=== PATIENT | female | born 1975 | race American Indian/Alaskan Native ===

== ENCOUNTER 2016-09-09 08:08 | Inpatient (IN) | payer OTHER, SELFPAY ==
[2016-09-09] MEDS ORDERED: Sodium Chloride 0.9% 1,000 ML IV STA (09:07)
[2016-09-09 09:37] LABS: BASO # 0.1 K/uL (0.0-0.2); BASO % 0.5 % (0.0-2.0); EOS % 0.1 % (0.0-4.0); HEMATOCRIT 39.1 % (34.0-47.0); LYMPH # 1.4 K/uL (1.0-4.3); LYMPH % 12.6 % (20.0-40.0); MEAN CELL VOLUME 88.9 fl (81.0-99.0); MEAN CORPUSCULAR HEMOGLOBIN 31.6 pg (27.0-31.0); MEAN CORPUSCULAR HGB CONC 35.6 g/dL (33.0-37.0); MEAN PLATELET VOLUME 10.9 fl (7.2-11.7); MONO # 0.6 K/uL (0.0-0.8); MONO % 5.2 % (0.0-10.0); NEUT # 8.9 K/uL (1.8-7.0); NEUT % 81.6 % (50.0-75.0); NRBC % 0.1 % (0.0-0.0); RED CELL DISTRIBUTION WIDTH 13.6 % (11.5-14.5); WHITE BLOOD COUNT 10.9 K/uL (4.8-10.8)
[2016-09-09 09:48] LABS: ALB/GLOB RATIO 1.1 (1.0-2.1); ALKALINE PHOSPHATASE 69 U/L (38-126); ALT/SGPT 62 U/L (9-52); AST/SGOT 53 U/L (14-36); BILIRUBIN,TOTAL 0.6 mg/dl (0.2-1.3); BLOOD UREA NITROGEN 10 mg/dl (7-17); CALCIUM 10.1 mg/dL (8.4-10.2); CARBON DIOXIDE 25 mmol/L (22-30); CHLORIDE 99 mmol/L (98-107); GFR AFRICAN-AMERICAN > 60; GLUCOSE,RANDOM 139 mg/dL (65-105); LIPASE 67 U/L (23-300); POTASSIUM 2.8 MMOL/L (3.6-5.0); SODIUM 139 mmol/l (132-148); TOTAL PROTEIN 8.3 G/DL (6.3-8.2)
[2016-09-09] MEDS ORDERED: Potassium Chloride 20 mEq ER Tab PO ONE ×3 (09:58→11:02)
--- NOTE | 2016-09-09 10:04 | ED PDOC ---
HPI: Abdomen Time Seen by Provider: 09/09/16 09:06 Chief Complaint (Nursing): GI Problem Chief Complaint (Provider): Upper Abdominal Pain History Per: Patient History/Exam Limitations: no limitations Onset/Duration Of Symptoms: Days (x1) Current Symptoms Are (Timing): Still Present Context: Food Severity: Mild Location Of Pain/Discomfort: RUQ, Epigastric Associated Symptoms: denies: Fever Additional Complaint(s): Patient is a 41 f complaining of epigastric and RUQ pain ongoing since yesterday afternoon status post eating. Pain is associated with several episodes of non-bloody vomiting. Pain persisted intermittently overnight causing her to sleep poorly. Denies prior history of symptoms. Denies fever or diarrhea PMD: none Past Medical History Reviewed: Historical Data, Nursing Documentation, Vital Signs Vital Signs: Last Vital Signs Temp 99.7 F H 09/10/16 08:13 Pulse 89 09/10/16 08:13 Resp 18 09/10/16 08:13 BP 131/78 09/10/16 08:13 Pulse Ox 98 09/10/16 08:13 - Medical History PMH: HTN Denies: HIV, Chronic Kidney Disease - Family History Family History: States: No Known Family Hx - Social History Current smoker - smoking cessation education provided: No - Immunization History Hx Tetanus Toxoid Vaccination: No Hx Influenza Vaccination: No Hx Pneumococcal Vaccination: No - Home Medications Home Medications: Ambulatory Orders Medication Instructions Recorded Lisinopril [Zestril] 20 mg PO DAILY #0 tab 02/08/15 amLODIPine [Norvasc] 5 mg PO DAILY #0 tab 02/08/15 Hydrochlorothiazide [Microzide] 25 mg PO DAILY 09/09/16 Metoprolol Tartrate [Lopressor] 50 mg PO Q12 09/09/16 - Allergies Allergies/Adverse Reactions: Allergies Allergy/AdvReac Type Severity Reaction Status Date / Time No Known Allergies Allergy Verified 02/07/15 19:29 Review of Systems ROS Statement: Except As Marked, All Systems Reviewed And Found Negative Constitutional: Negative for: Fever Gastrointestinal: Positive for: Vomiting, Abdominal Pain. Negative for: Diarrhea Physical Exam - Reviewed Nursing Documentation Reviewed: Yes Vital Signs Reviewed: Yes - Physical Exam Appears: Positive for: Well, Non-toxic, No Acute Distress Head Exam: Positive for: ATRAUMATIC, NORMAL INSPECTION, NORMOCEPHALIC Skin: Positive for: Normal Color, Warm, DRY Eye Exam: Positive for: Normal appearance, EOMI Neck: Positive for: Normal, Painless ROM Cardiovascular/Chest: Positive for: Regular Rate, Rhythm. Negative for: Gallop , Murmur Respiratory: Positive for: Normal Breath Sounds. Negative for: Accessory Muscle Use, Rhonchi, Respiratory Distress Gastrointestinal/Abdominal: Positive for: Soft, Tenderness (RUQ). Negative for : Mass, Distended, Guarding, Rebound Extremity: Positive for: Normal ROM Neurologic/Psych: Positive for: Alert, Oriented - Laboratory Results Result Diagrams: 09/10/16 05:00 09/10/16 05:00 - ECG O2 Sat by Pulse Oximetry: 100 Medical Decision Making Medical Decision Making: Time: 9:10 Impression: 41 y/o female with upper abdominal pain DDx: r/o Colitis Plan: EKG CMP Lipase Troponin Pepcid 20 mg IV Toradol 30 mg IV IVF Zofran 4 mg IV Potassium Chloride 40 meq PO US Abdomen US reveals +likely cholecystitis Labs reviewed, mild elev transaminases and WBC. Alk Phos and Bili normal. Significant hypokalemia, potassium replacement initiated. Zosyn initiated. Admit FP residents. D/w Dr Cody Arrieta master control supervisor surgery covering Dr Feliberto Chin. Surgery residents in ED thereafter. Pt informed of results and questions answered. Scribe Attestation: Documented by Alba Bo acting as a scribe for Medardo Aguero MD. Scribe Attestation: All medical record entries made by the Scribe were at my direction and personally dictated by me. I have reviewed the chart and agree that the record accurately reflects my personal performance of the history, physical exam, medical decision making, and the department course for this patient. I have also personally directed, reviewed, and agree with the discharge instructions and disposition. Disposition - Clinical Impression Clinical Impression: Cholecystitis, Hypokalemia - Patient ED Disposition Is Patient to be Admitted: Yes Counseled Patient/Family Regarding: Studies Performed, Diagnosis, Need For Followup - Disposition Disposition Time: 11:00 Condition: STABLE - Pt Status Changed To: Hospital Disposition Of: Inpatient - Admit Certification Admit to Inpatient:: After my assessment, the patient will require hospitalization for at least two midnights. This is because of the severity of symptoms shown, intensity of services needed, and/or the medical risk in this patient being treated as an outpatient. - POA Present On Arrival: None
[2016-09-09] MEDS ORDERED: Piperacillin/Tazobact 3.375 GM in Sodium Chloride 0.9% 100 ML IVPB STA (11:39)
[2016-09-09] MEDS ORDERED: Piperacillin/Tazobact 3.375 gm Inj IVPB ONE (12:02)
--- NOTE | 2016-09-09 12:04 | US ---
HISTORY: RUQ pain (eval GB, aorta, pancreas) COMPARISON: Comparison made with prior renal ultrasound 02/08/2015 TECHNIQUE: Sonographic evaluation of the right upper quadrant of the abdomen. FINDINGS: LIVER: Mildly enlarged measuring nearly 19 cm in length. Increased echogenicity of the liver parenchyma could be secondary to fatty infiltration however other infiltrative hepatocellular disease process not excluded. No mass. No intrahepatic bile duct dilatation. No ascites GALLBLADDER: Multiple intraluminal gallbladder calculi. . . There appears be some mild wall edema as well. Technologist indicates positive Hernandez sign. Mild wall edema COMMON BILE DUCT: Measures 3.6 mm. No stones. No dilatation. PANCREAS: Pancreas poorly seen due to body habitus and bowel gas. Pancreatic duct not visualized the RIGHT KIDNEY: Measures 11.1 x 6.1 x 4.6 cm cm in length. Normal echogenicity. No calculus, mass, or hydronephrosis. AORTA: No aneurysmal dilatation. IVC: Unremarkable. OTHER FINDINGS: None . IMPRESSION: Cholelithiasis with mild wall edema and positive Hernandez sign. Findings likely represent mild acute cholecystitis. Clinical correlation recommended. Mild hepatomegaly with probable fatty infiltration however other infiltrative hepatocellular disease process not excluded.
[2016-09-09] MEDS ORDERED: Iohexol 300 100 ML IJ ONE (14:01)
[2016-09-09] MEDS ORDERED: Sodium Chloride 0.9% 0 ML IV ONE (14:01)
--- NOTE | 2016-09-09 14:20 | CP.PCM.CON ---
<Aleja Day - Last Filed: 09/09/16 14:15> History of Present Illness - History of Present Illness History of Present Illness: General Surgery - Dr. Chin 41yo F w/ hx of HTN presenting w/ RUQ abdominal pain since last night. Pt. states the pain started yesterday night around 7pm. The pain is sharp, moderate intensity, located in the RUQ abdomen and non-radiating. She was given pain medication in the ED which helped somewhat but she states the pain is coming back now. Pt also had nausea and vomited 1x, non-bloody/non-bilious. She also admits to chills and diarrhea. Denies any Fevers, SOB/Chest pain, Dysuria, Hematuria, Constipation. PT states she has had this pain on and off for the past week but last 24hours it became much worse. PMH: HTN PSH: D&C Meds: BP med NKDA Pt was seen in the ED. Labs show mild elevated LFTs and WBC of 10.9, Potassium of 2.8. U/S RUQ was done which showed gallstones, pericholecystic fluid and positive hernandez's sign. Surgery was called for acute cholecystitis. Review of Systems - Review of Systems All systems: reviewed and no additional remarkable complaints except (as per HPI ) Past Patient History - Past Medical History & Family History Past Medical History?: Yes - Past Social History Smoking Status: Never Smoked - CARDIAC Hx Hypertension: Yes - PULMONARY Hx Respiratory Disorders: No - NEUROLOGICAL Hx Neurological Disorder: No - HEENT Hx HEENT Problems: No - RENAL Hx Chronic Kidney Disease: No - ENDOCRINE/METABOLIC Hx Endocrine Disorders: No - HEMATOLOGICAL/ONCOLOGICAL Hx Human Immunodeficiency Virus (HIV): No - INTEGUMENTARY Hx Dermatological Problems: No - MUSCULOSKELETAL/RHEUMATOLOGICAL Hx Musculoskeletal Disorders: No - GASTROINTESTINAL Hx Gastrointestinal Disorders: No - GENITOURINARY/GYNECOLOGICAL Hx Genitourinary Disorders: No - PSYCHIATRIC Hx Psychophysiologic Disorder: No Hx Substance Use: No - SURGICAL HISTORY Hx Surgeries: Yes Other/Comment: endometrial biopsy - ANESTHESIA Hx Anesthesia: Yes Hx Anesthesia Reactions: No Hx Malignant Hyperthermia: No Meds Allergies/Adverse Reactions: Allergies Allergy/AdvReac Type Severity Reaction Status Date / Time No Known Allergies Allergy Verified 02/07/15 19:29 - Medications Medications: Current Medications Potassium Chloride/Sodium Chloride (Potassium Chl 20 Meq In Ns) 1,000 mls @ 123.762 mls/hr IV .Q8H5M KRISTINA Stop: 09/10/16 13:51 Piperacillin Sod/Tazobactam (Sod 3.375 gm/ Sodium Chloride) 100 mls @ 100 mls/ hr IVPB Q6 KRISTINA Ketorolac Tromethamine (Toradol) 30 mg IVP Q8 PRN PRN Reason: Pain, moderate (4-7) Ondansetron HCl (Zofran Inj) 4 mg IVP Q6 PRN PRN Reason: Nausea/Vomiting Physical Exam - Constitutional Appears: No Acute Distress - Head Exam Head Exam: ATRAUMATIC, NORMAL INSPECTION, NORMOCEPHALIC - Eye Exam Eye Exam: Normal appearance - ENT Exam ENT Exam: Mucous Membranes Moist - Respiratory Exam Respiratory Exam: NORMAL BREATHING PATTERN. absent: Respiratory Distress - Cardiovascular Exam Cardiovascular Exam: REGULAR RHYTHM - GI/Abdominal Exam GI & Abdominal Exam: Guarding (voluntary), Soft, Tenderness (RUQ, +Hernandez's sign ). absent: Distended, Firm, Rebound - Neurological Exam Neurological exam: Alert, Oriented x3 - Psychiatric Exam Psychiatric exam: Normal Affect, Normal Mood - Skin Skin Exam: Dry, Intact Results - Vital Signs Recent Vital Signs: Last Vital Signs Temp 97.3 F L 09/09/16 08:29 Pulse 82 09/09/16 11:00 Resp 16 09/09/16 11:00 BP 132/79 09/09/16 11:00 Pulse Ox 100 09/09/16 11:00 - Labs Result Diagrams: 09/09/16 09:20 09/09/16 09:20 - Imaging and Cardiology US - abdomen Status: Image reviewed by me, Report reviewed by me Assessment & Plan - Assessment and Plan (Free Text) Assessment: 41 yo F w/ acute cholecystitis -NPO, IVF, IV Abx -Pain control, Anti-emetics -Plan for Laparoscopic Cholecystectomy, likely Tues. -Will DW Dr. Giuseppe Day PGY2 <Titi De León - Last Filed: 09/09/16 18:59> History of Present Illness - History of Present Illness History of Present Illness: Patient was seen and examined at the bedside. Agree with resident's note above Meds - Medications Medications: Current Medications Potassium Chloride/Sodium Chloride (Potassium Chl 20 Meq In Ns) 1,000 mls @ 123.762 mls/hr IV .Q8H5M KRISTINA Stop: 09/10/16 13:51 Last Admin: 09/09/16 16:33 Dose: 123.762 mls/hr Piperacillin Sod/Tazobactam (Sod 3.375 gm/ Sodium Chloride) 100 mls @ 100 mls/ hr IVPB Q6 KRISTINA Last Admin: 09/09/16 18:12 Dose: 100 mls/hr Ketorolac Tromethamine (Toradol) 30 mg IVP Q6H PRN PRN Reason: Pain, moderate (4-7) Ondansetron HCl (Zofran Inj) 4 mg IVP Q4H PRN PRN Reason: Nausea/Vomiting Results - Vital Signs Recent Vital Signs: Last Vital Signs Temp 97.5 F L 09/09/16 15:53 Pulse 57 L 09/09/16 15:53 Resp 18 09/09/16 15:53 BP 130/77 09/09/16 15:53 Pulse Ox 100 09/09/16 15:53 - Labs Result Diagrams: 09/09/16 09:20 09/09/16 14:15 Labs: Laboratory Results - last 24 hr 09/09/16 09/09/16 14:15 14:15 PT 10.7 INR 1.03 APTT 25.6 Potassium 3.2 L Magnesium 1.6 Assessment & Plan - Assessment and Plan (Free Text) Plan: - Keep NPO - IV fluids - Pain control - Continue Zosyn - Zofran prn - Plan for cholecystectomy tomorrow
--- NOTE | 2016-09-09 14:57 | CP.PCM.HP ---
History of Present Illness - History of Present Illness History of Present Illness: CC: right upper quadrant pain HPI: 41 yo female with hx of htn (on medications) presents with right upper quadrant pain starting last night. Pt states that the pain started after eating dinner, colicky in nature that is constant 8/10 at worse, located at the right upper quadrant and radiating to the epigasteric, associated nonbilious non bloody vomiting x 3 yesterday and 1 this morning. Pt reports previous similar episodes that self resolved within 30 minutes to 1 hour and is associated after meal for the past month. This time, the pain was constant, thus patient went to the ER. LMP is 08/15/2016 and currently no on her menses. Denies fever, chills, sob, palpitation, chest pain. Denies alcohol use or hx of hypertriglyceride and DM. PCP: [facility] Marquise Taylor PMHx: HTN PSHx: Denies Allergies: NKA S[place] hx: denies alcohol, tobacco, and illicit drugs. work as a nanny. lives with family FHx: Mother: HTN Father: HTN and DM Sister: brain aneurysm and hx of htn Home Medications: Metoprolol Tartrate 25 MG Tablet 1 tablet Orally Twice a day Lisinopril 20 MG Tablet 1 tablet Orally Twice a day Amlodipine Besylate 5 MG Tablet 1 tablet Orally Once a day Hydrochlorothiazide 25 MG Tablet 1 tablet Orally Once a day ED course: VS: afebrile, mild elevation bp 150/80, HR 60 u/s abdomen: Cholelithiasis with mild wall edema and positive Hernandez sign. Findings likely represent mild acute cholecystitis. cbc: mild [id number] cmp: elevated liver enzyme, hypokalemia: 2.8, lipase: wnl EKG: Sinus bradycardia with sinus arrhythmia, septal infarct, age undetermin troponin x 1 negative Treatment given: pepcid, toradol, potassium 40meq, zosyn Present on Admission - Present on Admission Any Indicators Present on Admission: No History of DVT/PE: No History of Uncontrolled Diabetes: No Urinary Catheter: No Decubitus Ulcer Present: No History Surgical Site Infection Following: None Review of Systems - Review of Systems All systems: reviewed and no additional remarkable complaints except Review of Systems: as per hpi Past Patient History - Past Medical History & Family History Past Medical History?: Yes - Past Social History Smoking Status: Never Smoked - CARDIAC Hx Hypertension: Yes - PULMONARY Hx Respiratory Disorders: No - NEUROLOGICAL Hx Neurological Disorder: No - HEENT Hx HEENT Problems: No - RENAL Hx Chronic Kidney Disease: No - ENDOCRINE/METABOLIC Hx Endocrine Disorders: No - HEMATOLOGICAL/ONCOLOGICAL Hx Human Immunodeficiency Virus (HIV): No - INTEGUMENTARY Hx Dermatological Problems: No - MUSCULOSKELETAL/RHEUMATOLOGICAL Hx Musculoskeletal Disorders: No - GASTROINTESTINAL Hx Gastrointestinal Disorders: No - GENITOURINARY/GYNECOLOGICAL Hx Genitourinary Disorders: No - PSYCHIATRIC Hx Psychophysiologic Disorder: No Hx Substance Use: No - SURGICAL HISTORY Hx Surgeries: Yes Other/Comment: endometrial biopsy - ANESTHESIA Hx Anesthesia: Yes Hx Anesthesia Reactions: No Hx Malignant Hyperthermia: No Meds Allergies/Adverse Reactions: Allergies Allergy/AdvReac Type Severity Reaction Status Date / Time No Known Allergies Allergy Verified 02/07/15 19:29 Physical Exam - Constitutional Appears: Non-toxic, No Acute Distress - Head Exam Head Exam: ATRAUMATIC - Eye Exam Eye Exam: EOMI, Normal appearance. absent: Conjunctival injection, Nystagmus - ENT Exam ENT Exam: Mucous Membranes Moist - Neck Exam Neck exam: Positive for: Full Rom, Normal Inspection. Negative for: Lymphadenopathy - Respiratory Exam Respiratory Exam: Clear to Auscultation Bilateral. absent: Chest Wall Tenderness, Decreased Breath Sounds, Rales, Wheezes - Cardiovascular Exam Cardiovascular Exam: REGULAR RHYTHM, +S1, +S2. absent: Systolic Murmur - GI/Abdominal Exam GI & Abdominal Exam: Guarding, Soft, Tenderness. absent: Rigid Additional comments: +Murphpy sign - Rectal Exam Rectal Exam: Deferred - Back Exam Back exam: FULL ROM - Neurological Exam Neurological exam: Alert, CN II-XII Intact, Oriented x3 - Psychiatric Exam Psychiatric exam: Normal Affect, Normal Mood - Skin Skin Exam: Normal Color, Warm Results - Vital Signs Recent Vital Signs: Last Vital Signs Temp 97.9 F 09/09/16 14:00 Pulse 79 09/09/16 14:00 Resp 16 09/09/16 14:00 BP 136/75 09/09/16 14:00 Pulse Ox 100 09/09/16 14:00 - Labs Result Diagrams: 09/10/16 05:00 09/10/16 05:00 Assessment & Plan - Assessment and Plan (Free Text) Assessment: 41 yo female with hx of htn (on medications) presents with right upper quadrant pain with vomiting found to have cholecystitis on ultrasound. Plan: Acute cholecystitis: -afebrile - mild leukocytosis of 10.6 -cmp: elevated liver enzyme, lipase: wnl -u/s abdomen: cholelithiasis with mild wall edema and positive Hernandez sign -NPO, IV NS+20meqK @ 125cc, zofran and toradol prn -zosyn 3.375q6 IV -surgery consult appreciated (Dr. Chin): possible laparoscopic in AM Hypokalemia -K 2.8 and potassium 40meq in the ED -EKG: Sinus bradycardia with sinus arrhythmia, septal infarct, age undetermine - troponin x 1 negative -f/u mag and K -currently recieving IV NS + 20meq HTN -control -will hold home meds Metoprolol Tartrate 25 MG Twice a day Lisinopril 20 MG Tablet 1 Twice a day Amlodipine Besylate 5 MG Once a day Hydrochlorothiazide 25 MG Once a day DVT -scd, possible OR tomorrow Decision To Admit - Pt Status Changed To: Hospital Disposition Of: Inpatient - Admit Certification Admit to Inpatient:: After my assessment, the patient will require hospitalization for at least two midnights. This is because of the severity of symptoms shown, intensity of services needed, and/or the medical risk in this patient being treated as an outpatient. - . Bed Request Type: Telemetry Admitting Physician: Alexa Giraldo
[2016-09-09 15:01] LABS: POTASSIUM 3.2 MMOL/L (3.6-5.0)
[2016-09-09 15:04] LABS: MAGNESIUM 1.6 MG/DL (1.6-2.3)
[2016-09-09 15:11] LABS: PARTIAL THROMBOPLASTIN TIME 25.6 SECONDS (23.3-32.5)
--- NOTE | 2016-09-09 15:32 | RAD ---
HISTORY: preop COMPARISON: Comparison chest 02/07/2015. TECHNIQUE: Chest PA and lateral FINDINGS: LUNGS: No active pulmonary disease. PLEURA: No significant pleural effusion identified. No pneumothorax apparent. CARDIOVASCULAR: Normal. OSSEOUS STRUCTURES: Minor multilevel degenerative spondylosis of the thoracic spine VISUALIZED UPPER ABDOMEN: Normal. OTHER FINDINGS: None. IMPRESSION: No active disease.
[2016-09-09] MEDS: Potassium Chl 20 mEq in NS 1,000 ML IV SCH (16:33)
[2016-09-09] MEDS: Piperacillin/Tazobact 3.375 GM in Sodium Chloride 0.9% 100 ML IVPB SCH ×2 (18:12→22:41)
[2016-09-10] MEDS: Potassium Chl 20 mEq in NS 1,000 ML IV SCH ×2 (02:51→09:17)
[2016-09-10] MEDS: Piperacillin/Tazobact 3.375 GM in Sodium Chloride 0.9% 100 ML IVPB SCH ×4 (04:20→21:21)
[2016-09-10 07:08] LABS: BASO % 0.3 % (0.0-2.0); EOS % 0.4 % (0.0-4.0); HEMATOCRIT 37.2 % (34.0-47.0); LYMPH # 1.7 K/uL (1.0-4.3); LYMPH % 13.7 % (20.0-40.0); MEAN CELL VOLUME 90.5 fl (81.0-99.0); MEAN CORPUSCULAR HGB CONC 34.3 g/dL (33.0-37.0); MEAN PLATELET VOLUME 10.7 fl (7.2-11.7); MONO # 1.1 K/uL (0.0-0.8); MONO % 8.9 % (0.0-10.0); NEUT # 9.8 K/uL (1.8-7.0); NEUT % 76.7 % (50.0-75.0); RED CELL DISTRIBUTION WIDTH 13.7 % (11.5-14.5); WHITE BLOOD COUNT 12.8 K/uL (4.8-10.8)
[2016-09-10 07:33] LABS: ALKALINE PHOSPHATASE 59 U/L (38-126); ALT/SGPT 64 U/L (9-52); AST/SGOT 42 U/L (14-36); BILIRUBIN,TOTAL 1.1 mg/dl (0.2-1.3); BLOOD UREA NITROGEN 9 mg/dl (7-17); CALCIUM 8.7 mg/dL (8.4-10.2); CARBON DIOXIDE 26 mmol/L (22-30); CHLORIDE 105 mmol/L (98-107); GFR AFRICAN-AMERICAN > 60; GLUCOSE,RANDOM 118 mg/dL (65-105); POTASSIUM 2.9 MMOL/L (3.6-5.0); SODIUM 139 mmol/l (132-148); TOTAL PROTEIN 6.6 G/DL (6.3-8.2)
[2016-09-10 07:34] LABS: ALB/GLOB RATIO 1.1 (1.0-2.1)
--- NOTE | 2016-09-10 08:29 | CP.PCM.PN ---
Subjective - Date & Time of Evaluation Date of Evaluation: 09/10/16 Time of Evaluation: 07:15 - Subjective Subjective: Patient was seen and examined at bedside this morning. Patient still complaining of right upper quadrant and epigastric pain, 5/10 as this evaluation , but denies nausea, vomiting or diarrheas. Denies chills or other complains. Patient is NPO due to scheduled Cholecystectomy today at 10 am. Objective - Vital Signs/Intake and Output Vital Signs (last 24 hours): Temp Pulse Resp BP Pulse Ox 99.7 F H 89 18 131/78 98 09/10/16 08:13 09/10/16 08:13 09/10/16 08:13 09/10/16 08:13 09/10/16 08:13 - Medications Medications: Current Medications Potassium Chloride/Sodium Chloride (Potassium Chl 20 Meq In Ns) 1,000 mls @ 123.762 mls/hr IV .Q8H5M KRISTINA Stop: 09/10/16 13:51 Last Admin: 09/10/16 02:51 Dose: 123.762 mls/hr Piperacillin Sod/Tazobactam (Sod 3.375 gm/ Sodium Chloride) 100 mls @ 100 mls/ hr IVPB Q6 KRISTINA Last Admin: 09/10/16 04:20 Dose: 100 mls/hr Potassium Chloride (Potassium Cl 10meq/50ml Sterile Water) 50 mls @ 50 mls/hr IVPB Q1 KRISTINA Stop: 09/10/16 11:59 Ketorolac Tromethamine (Toradol) 30 mg IVP Q6H PRN PRN Reason: Pain, moderate (4-7) Last Admin: 09/10/16 07:00 Dose: 30 mg Ondansetron HCl (Zofran Inj) 4 mg IVP Q4H PRN PRN Reason: Nausea/Vomiting - Labs Labs: 09/10/16 05:00 09/10/16 05:00 PT 10.7 SECONDS (9.6-11.2) 09/09/16 14:15 INR 1.03 (0.92-1.08) 09/09/16 14:15 APTT 25.6 SECONDS (23.3-32.5) 09/09/16 14:15 - Constitutional Appears: Non-toxic - Eye Exam Eye Exam: Normal appearance - ENT Exam ENT Exam: Mucous Membranes Moist - Respiratory Exam Respiratory Exam: Clear to Ausculation Bilateral, NORMAL BREATHING PATTERN. absent: Rales, Rhonchi, Wheezes - Cardiovascular Exam Cardiovascular Exam: REGULAR RHYTHM, +S1, +S2 - GI/Abdominal Exam GI & Abdominal Exam: Soft, Tenderness (tender to palpation of right upper quadrant and epigastrium, Hernandez sign positive, but no rigidity or guarding noted. ), Normal Bowel Sounds - Extremities Exam Extremities Exam: Normal Inspection. absent: Calf Tenderness, Pedal Edema - Neurological Exam Neurological Exam: Alert, Awake, Oriented x3 - Psychiatric Exam Psychiatric exam: Normal Affect, Normal Mood - Skin Skin Exam: Dry, Intact, Normal Color Assessment and Plan - Assessment and Plan (Free Text) Assessment: 41 yo female with hx of htn (on medications) presents with right upper quadrant pain with vomiting found to have cholecystitis on ultrasound, scheduled for cholecystectomy. Plan: Plan: 1)Acute Cholecystitis: -afebrile -Leukocytosis of 10.6 on 09/09/16, but trending up on 09/10/16 :12.8 -CMP: mildly elevated liver enzyme, lipase: wnl -U/S abdomen showed on 09/09/16: Cholelithiasis with mild wall edema and positive Hernandez sign. Findings likely represent mild acute cholecystitis. Mild hepatomegaly with probable fatty infiltration however other infiltrative hepatocellular disease process not excluded. -NPO -Zofran 4 mg IVP Q4 PRN -Toradol 30 mg Q6 PRN -Zosyn 3.375 q6 IV -Surgery consult appreciated (Dr. Chin): Scheduled for laparoscopic cholecystectomy today 2) Hypokalemia -Still present -Today K was 2.9 -Patient received potassium 40meq IV in the ED -Patient received 40 MEQ IV in the floor -EKG: Sinus bradycardia with sinus arrhythmia, septal infarct, age undetermined -Troponin x 1 negative -Magnesium on 09/09/16 WNL 3)HTN -controlled, asymptomatic -will hold home meds Metoprolol Tartrate 25 MG Twice a day Lisinopril 20 MG Tablet 1 Twice a day Amlodipine Besylate 5 MG Once a day Hydrochlorothiazide 25 MG Once a day 4)DVT -SCDs -Patient scheduled for OR today
[2016-09-10] MEDS: Potassium CL 10 MEQ/50 ML 50 ML IVPB SCH ×5 (08:30→20:43)
[2016-09-10] MEDS ORDERED: Lidocaine 1% Inj (20ml) ONE (10:31)
[2016-09-10] MEDS ORDERED: Succinylcholine 200 mg/10 ml Inj IV ONE (10:53)
[2016-09-10] MEDS ORDERED: Midazolam 2 MG/2 ML VIAL ONE (10:53)
[2016-09-10] MEDS ORDERED: Propofol 10 mg/ml Inj (20 ML) ONE (10:53)
[2016-09-10] MEDS ORDERED: Neostigmine Methylsulfate 3mg/3ml Syringe IV ONE (10:54)
[2016-09-10] MEDS ORDERED: Rocuronium 10 mg/ml (5 ml) ONE (10:57)
[2016-09-10] MEDS ORDERED: Lactated Ringer's 1,000 ML IV ONE ×2 (11:25→14:37)
--- NOTE | 2016-09-10 11:42 | CARD ---
APPROVED REPORT EKG Measurement Heart [id number] <Conclusion> Sinus bradycardia with sinus arrhythmia Septal infarct, age undetermined Abnormal ECG
--- NOTE | 2016-09-10 11:43 | CARD ---
APPROVED REPORT EKG Measurement Heart [id number] <Conclusion> Sinus rhythm with 1st degree AV block Septal infarct, age undetermined Abnormal ECG
[2016-09-10] MEDS ORDERED: Labetalol 5mg/ml (4ml) ONE (12:20)
[2016-09-10] MEDS ORDERED: Bupivacaine 0.5% 50 ML IJ ONE (12:55)
[2016-09-10] MEDS ORDERED: Lactated Ringer's 500 ML IV ONE (13:20)
--- NOTE | 2016-09-10 13:22 | PCM.SURG1 ---
Surgeon's Initial Post Op Note - Surgeon's Notes Surgeon: Dr. De León Professor Of Counseling: Dr. Chni, Dr. Day, PGY2; Bharti Boone Type of Anesthesia: General Endo Anesthesia Administered By: Will Pre-Operative Diagnosis: Acute Cholecystitis Operative Findings: same Post-Operative Diagnosis: same Operation Performed: Laparoscopic Cholecystectomy Specimen/Specimens Removed: Gallbladder Estimated Blood Loss: EBL {In ML}: 10 Blood Products Given: N/A Drains Used: No Drains Post-Op Condition: Good Date of Surgery/Procedure: 09/10/16 Time of Surgery/Procedure: 13:23
[2016-09-10] MEDS ORDERED: DiphenhydrAMINE 50 mg/ml Inj IVP PRN (13:30)
[2016-09-10] MEDS ORDERED: HYDROmorphone 0.5 mg/0.5 ml ISec IVP PRN (13:30)
[2016-09-10] MEDS: Lactated Ringer's 1,000 ML IV SCH (13:30)
[2016-09-10] MEDS ORDERED: Potassium Chloride 20 mEq ER Tab PO ONE (16:18)
--- NOTE | 2016-09-10 17:02 | OP ---
PROCEDURE DATE: 09/10/2016 PREOPERATIVE DIAGNOSIS: Acute cholecystitis. POSTOPERATIVE DIAGNOSIS: Acute cholecystitis. PROCEDURE: Laparoscopic cholecystectomy. SURGEON: Titi De León MD INTAKE MANAGER: Giuseppe CARSON INTAKE MANAGER: Shay ANESTHESIA: General with endotracheal intubation. INTRAVENOUS FLUIDS: Crystalloids. ESTIMATED BLOOD LOSS: 5 mL. INTRAOPERATIVE FINDINGS: Acute cholecystitis and cholelithiasis. SPECIMEN: Gallbladder with stones. BRIEF HISTORY: The patient is a very pleasant 41-year-old female who comes to the hospital complaining of severe epigastric and right upper quadrant abdominal pain for the duration of almost a week. Upon further investigation, patient was found to have acute cholecystitis. All the risks and benefits of the procedure were explained to the patient and with the patient having a full understanding of all the risks and benefits involved, informed consent was obtained and patient was taken to the operating room for above-stated procedure. PROCEDURE: The patient was brought into the operating room and placed supine on the operating table. Bilateral Flowtron boots were applied to patient's lower extremities. After successful induction of anesthesia and successful endotracheal intubation by the anesthesia team, patient's abdomen was prepped with ChloraPrep stick and draped in the standard surgical fashion. Prior to the beginning of the procedure, timeout was called in the room and everyone in the room was in agreement. Using Veress needle, patient's abdomen was entered at the umbilicus and pneumoperitoneum was achieved with good opening pressures. Once this was accomplished, using an 11 blade scalpel knife, a 1 cm incision was made in the longitudinal fashion in the umbilicus superiorly and subsequent to that, 11 mm trocar was introduced into patient's abdomen. Once this was accomplished, a 5 mm 0-degree scope was introduced into the patient's abdomen and abdomen was inspected. We immediately were able to visualize omentum that appeared to be stuck to the gallbladder. Then, attention was turned to the subxiphoid area. Using an 11 blade scalpel knife, a 5 mm incision was made in a transverse fashion and subsequent to that, another 5 mm trocar was introduced into the patient's abdomen. Then, attention was turned to the right side of the patient's abdomen. Using an 11 blade scalpel knife, two 5 mm incisions were made in a transverse fashion and subsequent to that, another two 5 mm trocars were introduced into the patient's abdomen. At that point in time, the omentum was teased down with [place] dissector, as well as with suction irrigation device and gallbladder appeared to be too tense, so we made a decision to decompress the gallbladder with the Veress needle. Once this was accomplished, gallbladder was grasped at the fundus and infundibulum using Ross gake graspers and subsequent to that, using [place] dissector cystic duct and cystic artery were dissected out and a critical view of safety was achieved. Once this was accomplished, the cystic duct was clipped with 2 clips proximal and 1 distal and transected with laparoscopic scissors. Same thing was done for the cystic artery. It was clipped with 2 clips proximally and 1 distally and transected with laparoscopic scissors. Upon further dissection, we were able to encounter posterior branch of the cystic artery that was dissected out with the [place] dissector and clipped with 2 clips proximal and 1 distal and transected with laparoscopic scissors. At that point in time, gallbladder was dissected off the gallbladder fossa using hook electrical cautery and once that was done and the gallbladder was completely freed up, EndoCatch bag was introduced into the patient's abdomen. Gallbladder was placed inside of the bag and the bag was closed. At that point in time, gallbladder fossa was inspected for hemostasis. Hemostasis was confirmed. Abdominal cavity and the gallbladder fossa was copiously irrigated with sterile saline and the fluid was suctioned out. At that point in time, 11 mm trocar together with EndoCatch bag and gallbladder were removed from the patient's abdomen and passed off to the [facility] as a specimen. Fascial layer at the umbilical port site was closed with 2 interrupted 0 Vicryl suture on UR-5 needle. Subsequent to that, patient's abdomen was fully desufflated. The rest of the trocars were removed from the patient's abdomen and skin was closed with 4-0 Monocryl suture in a running subcuticular fashion. At the end of the procedure, incision sites were infiltrated with Marcaine anesthetic. The patient's abdomen was washed and dried and Dermabond was applied to the incision sites. The patient was successfully extubated by the anesthesia team, transferred to the stretcher and taken to the recovery room in a stable condition. At the end of the procedure, all instrument counts, needles and sponges were correct. Titi De León MD cc: [id number] TT: 09/10/2016 17:01:25 sn MTDD
[2016-09-10] MEDS: Oxycodone/Acetaminophen 5/325 mg Tab PO PRN (18:05)
[2016-09-11] MEDS: Oxycodone/Acetaminophen 5/325 mg Tab PO PRN (01:08)
[2016-09-11] MEDS: Piperacillin/Tazobact 3.375 GM in Sodium Chloride 0.9% 100 ML IVPB SCH ×5 (03:27→21:29)
[2016-09-11] MEDS: Lactated Ringer's 1,000 ML IV SCH ×2 (03:28→13:15)
[2016-09-11] MEDS ORDERED: Phenol 1.4% Throat Spray MT PRN (07:47)
[2016-09-11] MEDS ORDERED: Potassium CL 10 MEQ/50 ML 50 ML IVPB SCH (10:00)
[2016-09-11] MEDS ORDERED: Potassium Chloride 20 mEq ER Tab PO ONE ×3 (11:06→18:13)
--- NOTE | 2016-09-11 11:14 | CP.PCM.PN ---
<Aleja Day - Last Filed: 09/11/16 11:11> Subjective - Date & Time of Evaluation Date of Evaluation: 09/11/16 Time of Evaluation: 11:11 - Subjective Subjective: General Surgery - Dr. De León Pt S&E. PRAVEENA. Pt has mild incisional pain, appropriate. Pt states she tolerated liquids yesterday and is going to try regular food today. No N/V, F/C , SOB/Cp. Objective - Vital Signs/Intake and Output Vital Signs (last 24 hours): Temp Pulse Resp BP Pulse Ox 98.1 F 83 18 154/96 H 97 09/11/16 08:17 09/11/16 08:29 09/11/16 08:17 09/11/16 08:29 09/11/16 08:17 - Medications Medications: Current Medications Piperacillin Sod/Tazobactam (Sod 3.375 gm/ Sodium Chloride) 100 mls @ 100 mls/ hr IVPB Q6 [facility] Last Admin: 09/11/16 08:50 Dose: 100 mls/hr Lactated Ringer's (Lactated Ringer's) 1,000 mls @ 100 mls/hr IV .Q10H [facility] Last Admin: 09/11/16 03:28 Dose: 100 mls/hr Metoprolol Tartrate (Lopressor) 50 mg PO Q12 [facility] Last Admin: 09/11/16 08:29 Dose: 50 mg Morphine Sulfate (Morphine) 4 mg IVP Q4 PRN PRN Reason: Pain, severe (8-10) Ondansetron HCl (Zofran Inj) 4 mg IVP Q4H PRN PRN Reason: Nausea/Vomiting Oxycodone/Acetaminophen (Percocet 5/325 Mg Tab) 2 tab PO Q4 PRN PRN Reason: Pain, moderate (4-7) Stop: 09/13/16 13:27 Last Admin: 09/11/16 01:08 Dose: 2 tab Phenol/Menthol (Phenaseptic 1.4% Throat Colver) 1 spry MT Q2 PRN PRN Reason: Sore Throat Potassium Chloride (K-Dur 20 Meq Er Tab) 40 meq PO ONCE ONE Stop: 09/11/16 11:07 Potassium Chloride (K-Dur 20 Meq Er Tab) 40 meq PO ONCE ONE Stop: 09/11/16 11:11 - Labs Labs: 09/10/16 05:00 09/11/16 10:20 PT 10.7 SECONDS (9.6-11.2) 09/09/16 14:15 INR 1.03 (0.92-1.08) 09/09/16 14:15 APTT 25.6 SECONDS (23.3-32.5) 09/09/16 14:15 - Constitutional Appears: No Acute Distress - Head Exam Head Exam: ATRAUMATIC - Eye Exam Eye Exam: EOMI, Normal appearance Pupil Exam: NORMAL ACCOMODATION - Respiratory Exam Respiratory Exam: NORMAL BREATHING PATTERN. absent: Respiratory Distress - GI/Abdominal Exam GI & Abdominal Exam: Soft. absent: Distended, Guarding, Tenderness, Rebound Additional comments: incisions C/D/I with dermabond - Neurological Exam Neurological Exam: Alert, Oriented x3 - Psychiatric Exam Psychiatric exam: Normal Mood - Skin Skin Exam: Dry, Intact Assessment and Plan - Assessment and Plan (Free Text) Assessment: 41 yo F w/ acute cholecystitis, S/P Lap Cholecystectomy POD #1 -Regular diet -Encourage OOB/Ambulatoin -F/U K -If potassium repleted and pt. tolerating regular diet she is clear for discharge home later today -DW Dr. Genet Day PGY2 <Titi De León - Last Filed: 09/11/16 14:51> Subjective - Subjective Subjective: Patient was seen and examined at the bedside. Agree with resident's note above Objective - Vital Signs/Intake and Output Vital Signs (last 24 hours): Temp Pulse Resp BP Pulse Ox 102 F H 79 18 157/89 H 97 09/11/16 12:01 09/11/16 12:01 09/11/16 12:01 09/11/16 12:01 09/11/16 12:01 - Medications Medications: Current Medications Enoxaparin Sodium (Lovenox) 40 mg SC DAILY [facility] PRN Reason: Protocol Last Admin: 09/11/16 13:17 Dose: 40 mg Piperacillin Sod/Tazobactam (Sod 3.375 gm/ Sodium Chloride) 100 mls @ 100 mls/ hr IVPB Q6 [facility] Last Admin: 09/11/16 13:16 Dose: Not Given Lactated Ringer's (Lactated Ringer's) 1,000 mls @ 100 mls/hr IV .Q10H [facility] Last Admin: 09/11/16 13:15 Dose: Not Given Metoprolol Tartrate (Lopressor) 50 mg PO Q12 [facility] Last Admin: 09/11/16 08:29 Dose: 50 mg Morphine Sulfate (Morphine) 4 mg IVP Q4 PRN PRN Reason: Pain, severe (8-10) Ondansetron HCl (Zofran Inj) 4 mg IVP Q4H PRN PRN Reason: Nausea/Vomiting Oxycodone/Acetaminophen (Percocet 5/325 Mg Tab) 2 tab PO Q4 PRN PRN Reason: Pain, moderate (4-7) Stop: 09/13/16 13:27 Last Admin: 09/11/16 01:08 Dose: 2 tab Phenol/Menthol (Phenaseptic 1.4% Throat Colver) 1 spry MT Q2 PRN PRN Reason: Sore Throat - Labs Labs: 09/10/16 05:00 09/11/16 10:20 PT 10.7 SECONDS (9.6-11.2) 09/09/16 14:15 INR 1.03 (0.92-1.08) 09/09/16 14:15 APTT 25.6 SECONDS (23.3-32.5) 09/09/16 14:15 Assessment and Plan - Assessment and Plan (Free Text) Plan: - Regular diet - Pain control - Continue antibiotics - Repeat labs in am - Will follow
[2016-09-11] MEDS: Enoxaparin 40 mg Syringe SC SCH (13:17)
--- NOTE | 2016-09-11 15:35 | CP.PCM.PCO ---
Assessment/Plan - Assessment and Plan (Free Text) Assessment: I saw and evaluated the patient with residents on rounds. I discussed the case with the resident and agree with the findings and plan as documented in the resident's note. Pt with temperature spike. Lungs cts abd soft nt healing surgical scars, no erythema Fever incentive spirometry, will follow Lovenox ordered Grief over passing of sister- coin purse framer notified
--- NOTE | 2016-09-11 17:38 | CP.PCM.PN ---
Subjective - Date & Time of Evaluation Date of Evaluation: 09/11/16 Time of Evaluation: 07:00 - Subjective Subjective: Patient was seen and examined at bedside at this morning. Patient was complaining of mild right upper quadrant and epigastric sore sensation, well controlled with pain medications. Patient is tolerating PO. Denies chills, nausea, vomiting at this evaluation. Patient is passing gas, but has not had a bowel movement. Objective - Vital Signs/Intake and Output Vital Signs (last 24 hours): Temp Pulse Resp BP Pulse Ox 98.9 F 85 16 132/88 97 09/11/16 16:03 09/11/16 16:03 09/11/16 16:03 09/11/16 16:03 09/11/16 16:03 - Medications Medications: Current Medications Enoxaparin Sodium (Lovenox) 40 mg SC DAILY [facility] PRN Reason: Protocol Last Admin: 09/11/16 13:17 Dose: 40 mg Piperacillin Sod/Tazobactam (Sod 3.375 gm/ Sodium Chloride) 100 mls @ 100 mls/ hr IVPB Q6 [facility] Last Admin: 09/11/16 13:16 Dose: Not Given Metoprolol Tartrate (Lopressor) 50 mg PO Q12 [facility] Last Admin: 09/11/16 08:29 Dose: 50 mg Morphine Sulfate (Morphine) 4 mg IVP Q4 PRN PRN Reason: Pain, severe (8-10) Ondansetron HCl (Zofran Inj) 4 mg IVP Q4H PRN PRN Reason: Nausea/Vomiting Oxycodone/Acetaminophen (Percocet 5/325 Mg Tab) 2 tab PO Q4 PRN PRN Reason: Pain, moderate (4-7) Stop: 09/13/16 13:27 Last Admin: 09/11/16 01:08 Dose: 2 tab Phenol/Menthol (Phenaseptic 1.4% Throat Mccloud) 1 spry MT Q2 PRN PRN Reason: Sore Throat - Labs Labs: 09/10/16 05:00 09/11/16 10:20 PT 10.7 SECONDS (9.6-11.2) 09/09/16 14:15 INR 1.03 (0.92-1.08) 09/09/16 14:15 APTT 25.6 SECONDS (23.3-32.5) 09/09/16 14:15 - Constitutional Appears: Non-toxic, No Acute Distress - Eye Exam Eye Exam: Normal appearance - ENT Exam ENT Exam: Mucous Membranes Moist - Respiratory Exam Respiratory Exam: Clear to Ausculation Bilateral, NORMAL BREATHING PATTERN - Cardiovascular Exam Cardiovascular Exam: REGULAR RHYTHM, +S1, +S2 - GI/Abdominal Exam GI & Abdominal Exam: Soft, Tenderness (mild tender to palpation of right upper abdomen and epigastrium, but no rebound tenderness, rigidity, or guarding. ), Diminished Bowel Sounds - Extremities Exam Extremities Exam: Normal Inspection. absent: Calf Tenderness, Pedal Edema - Neurological Exam Neurological Exam: Alert, Awake, Oriented x3 - Skin Skin Exam: Dry, Intact, Normal Color Assessment and Plan - Assessment and Plan (Free Text) Assessment: 41 yo female with hx of htn (on medications) with Acute Cholecystitis s/p cholecystectomy on POD #1. Plan: Plan: 1)Acute Cholecystitis s/p laparoscopic cholecystectomy -Patient had two episodes of fever this morning, 102 F. -Tylenol 650 mg 1 tab once. Consider Blood culture and urine culture if patient spikes fever -Leukocytosis of 10.6 on 09/09/16, but trending up on 09/10/16 :12.8 -CMP: mildly elevated liver enzyme, lipase: wnl -U/S abdomen showed on 09/09/16: Cholelithiasis with mild wall edema and positive Hernandez sign. Findings likely represent mild acute cholecystitis. Mild hepatomegaly with probable fatty infiltration however other infiltrative hepatocellular disease process not excluded. -Regular diet -Zofran 4 mg IVP Q4 PRN -Pain management with percocet PO -Zosyn 3.375 q6 IV -Surgery on board -Continue incentive spirometer 2) Hypokalemia -Still present, but improving -K+ trending up from 2.9 to 3.2 on 09/11/16 -Patient received 40 MEQ PO once -F/U repeat EKG -Magnesium on 09/09/16 WNL 3)HTN -controlled, asymptomatic -Metoprolol Tartrate 50 MG Twice a day -will hold home meds due to blood pressure WNL Lisinopril 20 MG Tablet 1 Twice a day Amlodipine Besylate 5 MG Once a day Hydrochlorothiazide 25 MG Once a day -Continue monitoring BP 4)DVT -Lovenox 40 mg SC daily
[2016-09-11] MEDS ORDERED: Simethicone 80 mg Chewtab PO PRN (20:05)
[2016-09-11] MEDS ORDERED: Docusate-Senna 50 mg-8.6 mg Tab PO SCH (22:00)
[2016-09-12] MEDS: Piperacillin/Tazobact 3.375 GM in Sodium Chloride 0.9% 100 ML IVPB SCH ×2 (03:59→09:00)
[2016-09-12] MEDS ORDERED: Pantoprazole 40 mg EC Tab PO ONE (07:55)
[2016-09-12 08:15] VITALS: RESP 16
[2016-09-12] MEDS: Enoxaparin 40 mg Syringe SC SCH (08:48)
[2016-09-12 09:44] LABS: BASO # 0.1 K/uL (0.0-0.2); BASO % 0.6 % (0.0-2.0); EOS # 0.1 K/uL (0.0-0.7); EOS % 1.1 % (0.0-4.0); HEMATOCRIT 34.6 % (34.0-47.0); LYMPH # 2.1 K/uL (1.0-4.3); LYMPH % 18.8 % (20.0-40.0); MEAN CELL VOLUME 90.2 fl (81.0-99.0); MEAN CORPUSCULAR HEMOGLOBIN 31.3 pg (27.0-31.0); MEAN CORPUSCULAR HGB CONC 34.7 g/dL (33.0-37.0); MEAN PLATELET VOLUME 10.3 fl (7.2-11.7); MONO # 0.9 K/uL (0.0-0.8); MONO % 8.3 % (0.0-10.0); NEUT # 7.8 K/uL (1.8-7.0); NEUT % 71.2 % (50.0-75.0); NRBC % 0.1 % (0.0-0.0); RED CELL DISTRIBUTION WIDTH 13.8 % (11.5-14.5); WHITE BLOOD COUNT 10.9 K/uL (4.8-10.8)
[2016-09-12 10:04] LABS: ALB/GLOB RATIO 0.9 (1.0-2.1); ALKALINE PHOSPHATASE 106 U/L (38-126); ALT/SGPT 87 U/L (9-52); AST/SGOT 51 U/L (14-36); BLOOD UREA NITROGEN 6 mg/dl (7-17); CARBON DIOXIDE 27 mmol/L (22-30); CHLORIDE 106 mmol/L (98-107); GFR AFRICAN-AMERICAN > 60; GLUCOSE,RANDOM 116 mg/dL (65-105); POTASSIUM 3.3 MMOL/L (3.6-5.0); SODIUM 141 mmol/l (132-148)
--- NOTE | 2016-09-12 10:16 | CP.PCM.PN ---
Subjective - Date & Time of Evaluation Date of Evaluation: 09/12/16 Time of Evaluation: 10:14 - Subjective Subjective: General Surgery - Dr. De León Pt S&E. PRAVEENA. Pt has been Afebrile since yesterday AM. She is tolerating regular diet and ambulating. Pain is mild. No N/V, F/C, SOB/CP. Objective - Vital Signs/Intake and Output Vital Signs (last 24 hours): Temp Pulse Resp BP Pulse Ox 99.6 F 85 16 150/91 H 97 09/12/16 08:14 09/12/16 08:48 09/12/16 08:14 09/12/16 08:48 09/12/16 08:14 Intake and Output: 09/12/16 09/12/16 06:59 18:59 Intake Total 100 Balance 100 - Medications Medications: Current Medications Enoxaparin Sodium (Lovenox) 40 mg SC DAILY [facility] PRN Reason: Protocol Last Admin: 09/12/16 08:48 Dose: 40 mg Piperacillin Sod/Tazobactam (Sod 3.375 gm/ Sodium Chloride) 100 mls @ 100 mls/ hr IVPB Q6 [facility] Last Admin: 09/12/16 03:59 Dose: 100 mls/hr Lisinopril (Zestril) 20 mg PO DAILY [facility] Metoprolol Tartrate (Lopressor) 50 mg PO Q12 [facility] Last Admin: 09/12/16 08:48 Dose: 50 mg Morphine Sulfate (Morphine) 4 mg IVP Q4 PRN PRN Reason: Pain, severe (8-10) Ondansetron HCl (Zofran Inj) 4 mg IVP Q4H PRN PRN Reason: Nausea/Vomiting Oxycodone/Acetaminophen (Percocet 5/325 Mg Tab) 2 tab PO Q4 PRN PRN Reason: Pain, moderate (4-7) Stop: 09/13/16 13:27 Last Admin: 09/11/16 01:08 Dose: 2 tab Phenol/Menthol (Phenaseptic 1.4% Throat Busy) 1 spry MT Q2 PRN PRN Reason: Sore Throat Simethicone (Mylicon Chew Tab) 80 mg PO [facility] PRN PRN Reason: Flatulence Last Admin: 09/11/16 21:29 Dose: 80 mg - Labs Labs: 09/12/16 09:35 09/12/16 09:35 PT 10.7 SECONDS (9.6-11.2) 09/09/16 14:15 INR 1.03 (0.92-1.08) 09/09/16 14:15 APTT 25.6 SECONDS (23.3-32.5) 09/09/16 14:15 - Constitutional Appears: Well, No Acute Distress - Head Exam Head Exam: ATRAUMATIC, NORMAL INSPECTION, NORMOCEPHALIC - Eye Exam Eye Exam: Normal appearance - Respiratory Exam Respiratory Exam: NORMAL BREATHING PATTERN. absent: Respiratory Distress - GI/Abdominal Exam GI & Abdominal Exam: Soft. absent: Distended, Guarding, Tenderness, Rebound Additional comments: surgical incisions C/D/i with dermabond - Neurological Exam Neurological Exam: Alert, Oriented x3 - Psychiatric Exam Psychiatric exam: Normal Affect, Normal Mood - Skin Skin Exam: Dry, Intact Assessment and Plan - Assessment and Plan (Free Text) Assessment: 41 yo F w/ acute cholecystitis, S/P Lap Cholecystectomy POD #2 -Tolerating Regular Diet, Ambulating, Afebrile -Labs improved -Clear for D/C from surgical standpoint -Pt should continue Augmentin for 1 week and may have Percocet prn for pain -F/U in office w/ Dr. De León in 2 weeks Pt was S&E and plan DW Dr. Genet Day PGY2
[2016-09-12] MEDS ORDERED: Potassium Chloride 20 mEq ER Tab PO ONE (10:18)
--- NOTE | 2016-09-12 10:53 | CP.PCM.DIS ---
Provider - Provider Date of Admission: 09/09/16 11:43 Attending physician: Alexa Giraldo MD Time Spent in preparation of Discharge (in minutes): 30 Diagnosis - Discharge Diagnosis (1) Cholecystitis Status: Acute Priority: High Comment: S/P laparoscopic Cholecystectomy. Patient will follow as outpatient with surgeon, Dr. De León in office in 2 weeks. Will continue with PO antibiotic , Augmentin for one week. (2) Hypokalemia Status: Acute Priority: Medium Comment: Most likely related to clinical presentation of cholecystitis. Potassium given to replace deficiencies and resolved before discharge. K+: 3.9, Magnesium WNL. (3) Hypertension Status: Chronic Priority: Medium Comment: Controlled with reassumed home medications Hospital Course - Lab Results Lab Results: Most Recent Lab Values WBC 10.9 K/uL (4.8-10.8) H 09/12/16 09:35 RBC 3.84 Mil/uL (3.80-5.20) 09/12/16 09:35 Hgb 12.0 g/dL (12.0-16.0) 09/12/16 09:35 Hct 34.6 % (34.0-47.0) 09/12/16 09:35 MCV 90.2 fl (81.0-99.0) 09/12/16 09:35 MCH 31.3 pg (27.0-31.0) H 09/12/16 09:35 MCHC 34.7 g/dL (33.0-37.0) 09/12/16 09:35 RDW 13.8 % (11.5-14.5) 09/12/16 09:35 Plt Count 224 K/uL (130-400) 09/12/16 09:35 MPV 10.3 fl (7.2-11.7) 09/12/16 09:35 Neut % (Auto) 71.2 % (50.0-75.0) 09/12/16 09:35 Lymph % (Auto) 18.8 % (20.0-40.0) L 09/12/16 09:35 Beauregard % (Auto) 8.3 % (0.0-10.0) 09/12/16 09:35 Eos % (Auto) 1.1 % (0.0-4.0) 09/12/16 09:35 Baso % (Auto) 0.6 % (0.0-2.0) 09/12/16 09:35 Neut # 7.8 K/uL (1.8-7.0) H 09/12/16 09:35 Lymph # 2.1 K/uL (1.0-4.3) 09/12/16 09:35 Beauregard # 0.9 K/uL (0.0-0.8) H 09/12/16 09:35 Eos # 0.1 K/uL (0.0-0.7) 09/12/16 09:35 Baso # 0.1 K/uL (0.0-0.2) 09/12/16 09:35 PT 10.7 SECONDS (9.6-11.2) 09/09/16 14:15 INR 1.03 (0.92-1.08) 09/09/16 14:15 APTT 25.6 SECONDS (23.3-32.5) 09/09/16 14:15 Sodium 141 mmol/l (132-148) 09/12/16 09:35 Potassium 3.3 MMOL/L (3.6-5.0) L 09/12/16 09:35 Chloride 106 mmol/L (98-107) 09/12/16 09:35 Carbon Dioxide 27 mmol/L (22-30) 09/12/16 09:35 Anion Gap 11 (10-20) 09/12/16 09:35 BUN 6 mg/dl (7-17) L 09/12/16 09:35 Creatinine 1.0 mg/dL (0.7-1.2) 09/12/16 09:35 Est GFR ( Amer) > 60 09/12/16 09:35 Est GFR (Non-Af Amer) > 60 09/12/16 09:35 Random Glucose 116 mg/dL (65-105) H 09/12/16 09:35 Calcium 9.0 mg/dL (8.4-10.2) 09/12/16 09:35 Magnesium 1.6 MG/DL (1.6-2.3) 09/09/16 14:15 Total Bilirubin 1.0 mg/dl (0.2-1.3) 09/12/16 09:35 AST 51 U/L (14-36) H D 09/12/16 09:35 ALT 87 U/L (9-52) H D 09/12/16 09:35 Alkaline Phosphatase 106 U/L (38-126) 09/12/16 09:35 Troponin I < 0.0120 ng/mL (0.00-0.120) 09/09/16 09:20 Total Protein 7.0 G/DL (6.3-8.2) 09/12/16 09:35 Albumin 3.4 g/dL (3.5-5.0) L 09/12/16 09:35 Globulin 3.6 gm/dL (2.2-3.9) 09/12/16 09:35 Albumin/Globulin Ratio 0.9 (1.0-2.1) L 09/12/16 09:35 Lipase 67 U/L (23-300) 09/09/16 09:20 - Hospital Course Hospital Course: 41 yo female with hx of HTN who presented to ED c/o right upper quadrant pain associated with nausea, and nonbilious non bloody vomits. Patient was admitted with a diagnosis of acute cholecystitis most likely secondary to cholelithiasis. Abdominal ultrasound showed findings of aute cholecystitis. Surgery was consulted, and patient was managed with laparoscopic cholecystectomy. After surgical intervention patient was progressing well, but she had a high tenperature of 102 F. Patient anticipated discharge yesterday was held, but she did not have another episode of fever since the last 24 hours. Patient was also managed with pre and postoperative antibiotics . Also patient was hypokalemic most likely duw to clinical presentation of cholecystitis, and was replaced. Patient was seen and examined at bedside this morning. Patient is tolerating PO, voiding well, passing gas and bowel movements. Patient is stable to be discharged today in PO antibiotics, Augmentin , to complate a course of 7 days, and will follow as outpatient with Dr. De León for postoperative evaluation. Repeat CBC and CMP as outpatient. Home medications Augmentin 875 mg 1 tab BID PO for 7 days Percocet 325/5 mg 1 tab Q6 PRN for pain control Colace 200 mg once a day PRN for constipation Amlodipine 5 mg PO daily HCTZ 25 mg PO daily Lisinopril 20 mg PO daily Metoprolol 50 mg BID PO - Date & Time of H&P Date of H&P: 09/09/16 Time of H&P: 14:25 Discharge Exam - Head Exam Head Exam: NORMAL INSPECTION, NORMOCEPHALIC - Eye Exam Eye Exam: Normal appearance - ENT Exam ENT Exam: Mucous Membranes Moist - Respiratory Exam Respiratory Exam: Clear to PA & Lateral, NORMAL BREATHING PATTERN - Cardiovascular Exam Cardiovascular Exam: REGULAR RHYTHM, +S1, +S2 - GI/Abdominal Exam GI & Abdominal Exam: Normal Bowel Sounds, Soft, Tenderness (very mild tender to palpation of right upper quadrantand epigastrium, but no rebound tender noted, no rigidity or guarding noted. ). absent: Guarding, Rebound, Rigid - Extremities Exam Extremities exam: normal inspection Additional comments: No edema noted bilateral. DP, PT, and radial pulses present and bilateral. Pramod 's sign negative bilateral. - Back Exam Back exam: absent: CVA tenderness (L), CVA tenderness (R) - Neurological Exam Neurological exam: Alert, Oriented x3 - Skin Skin Exam: Dry, Intact, Normal Color Discharge Plan - Discharge Medications Prescriptions: Docusate Sodium [Colace] 200 mg PO DAILY PRN #30 capsule PRN Reason: Constipation oxyCODONE/Acetaminophen [Percocet 5/325 mg Tab] 1 tab PO Q6 PRN #15 tab PRN Reason: Pain, Moderate (4-7) - Follow Up Plan Condition: STABLE Disposition: HOME/ ROUTINE Patient education suggested?: Yes Instructions: Hypokalemia (DC), Hypokalemia (GEN) Additional Instructions: You may resume regular diet and light activities. No heavy lifting >10lbs for 4weeks. F/U in office with Dr. De León in 2 weeks. Referrals: Titi De León MD [Staff Provider] -
[2016-09-12 12:46] VITALS: BP 144/87; PULSE 78; TEMP 98.5; O2SAT 100
[2016-09-12 15:59] LABS: MAGNESIUM 1.9 MG/DL (1.6-2.3); POTASSIUM 3.9 MMOL/L (3.6-5.0)
== END 2016-09-12 16:00 | disposition home or self-care (01) | DRG 493 ==
LOC: H.ER 08:08 → H.ERHOLD 11:43 → H.TEL 14:50
PROVIDERS: ADMIT Family Medicine Geriatric Medicine; ATTEND Family Medicine Geriatric Medicine
PROC: 0FT44ZZ Resection of Gallbladder, Percutaneous Endoscopic Approach (ICD-10-PCS; principal; 2016-09-09)
DX: K80.00 Calculus of gallbladder with acute cholecystitis without obstruction (principal); E87.6 Hypokalemia; I10 Essential (primary) hypertension; R50.82 Postprocedural fever

== ENCOUNTER 2018-01-13 04:05 | Emergency (ER) | payer MEDICAID ==
[2018-01-13 04:29] VITALS: BMI 42.5
[2018-01-13] MEDS ORDERED: Sodium Chloride 0.9% 1,000 ML IV STA (04:59)
--- NOTE | 2018-01-13 05:04 | ED PDOC ---
HPI: Female Pain Chief Complaint (Provider): vaginal bleeding History Per: Patient History/Exam Limitations: no limitations Onset/Duration Of Symptoms: Days (6) Current Symptoms Are (Timing): Still Present Quality Of Discomfort: Cramping Additional Complaint(s): 42 y/o female presents for evaluation of vaginal bleeding x 6 days. Patient states she has always had irregular or absent periods; states last period was 2017. Patient states she was started on a 10-day course of Provera by her Biomedical Equipment Tech to induce a period since recent ultrasound showed her endometrium was very thick. Patient states she finished the Provera 01/05 and bleeding started . Patient states bleeding became progressively heavier; noting the worst today with + clots. Patient reports feeling lightheaded and weak. Associated pelvic pain. Denies fever, nausea/vomiting, chest pain, shortness of breath, palpitations. Biomedical Equipment Tech: Dr. Burns Abnormal Vaginal Bleeding: Yes <Radha Oscar - Last Filed: 01/13/18 05:55> <Bhanu Whaley - Last Filed: 01/13/18 06:17> Time Seen by Provider: 01/13/18 04:39 Chief Complaint (Nursing): Female Genitourinary Past Medical History Reviewed: Historical Data, Nursing Documentation, Vital Signs Vital Signs: Last Vital Signs Temp 99.0 F 01/13/18 04:29 Pulse 100 H 01/13/18 04:29 Resp 16 01/13/18 04:29 BP 111/78 01/13/18 04:29 Pulse Ox 100 01/13/18 04:29 - Medical History PMH: HTN Denies: HIV, Chronic Kidney Disease - Surgical History Surgical History: No Surg Hx - Family History Family History: States: No Known Family Hx - Immunization History Hx Tetanus Toxoid Vaccination: No Hx Influenza Vaccination: No Hx Pneumococcal Vaccination: No <Radha Oscar - Last Filed: 01/13/18 05:55> Vital Signs: Last Vital Signs Temp 99.0 F 01/13/18 04:29 Pulse 100 H 01/13/18 04:29 Resp 16 01/13/18 04:29 BP 111/78 01/13/18 04:29 Pulse Ox 100 01/13/18 05:56 <Bhanu Whaley - Last Filed: 01/13/18 06:17> - Home Medications Home Medications: Ambulatory Orders Medication Instructions Recorded Lisinopril [Zestril] 20 mg PO DAILY #0 tab 02/08/15 amLODIPine [Norvasc] 5 mg PO DAILY #0 tab 02/08/15 Hydrochlorothiazide [Microzide] 25 mg PO DAILY 09/09/16 Metoprolol Tartrate [Lopressor] 50 mg PO Q12 09/09/16 Docusate Sodium [Colace] 200 mg PO DAILY PRN #30 capsule 09/11/16 oxyCODONE/Acetaminophen [Percocet 1 tab PO Q6 PRN #15 tab 09/11/16 5/325 mg Tab] - Allergies Allergies/Adverse Reactions: Allergies Allergy/AdvReac Type Severity Reaction Status Date / Time No Known Allergies Allergy Verified 01/13/18 04:29 Review of Systems ROS Statement: Except As Marked, All Systems Reviewed And Found Negative Genitourinary Female: Positive for: Vaginal Bleeding, Pelvic Pain <Radha Oscar - Last Filed: 01/13/18 05:55> Physical Exam - Reviewed Nursing Documentation Reviewed: Yes Vital Signs Reviewed: Yes - Physical Exam Appears: Positive for: Well, Non-toxic, No Acute Distress Head Exam: Positive for: ATRAUMATIC, NORMAL INSPECTION, NORMOCEPHALIC Skin: Positive for: Normal Color Eye Exam: Positive for: Normal appearance ENT: Positive for: Normal ENT Inspection Cardiovascular/Chest: Positive for: Regular Rate, Rhythm Respiratory: Positive for: Normal Breath Sounds Gastrointestinal/Abdominal: Positive for: Bowel Sounds, Soft, Tenderness ( diffuse lower abdominal discomfort to palpation) Pelvic Exam: Positive for: External Exam Normal, No Cerv. 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 Negative for: Cervicitis, Tender Adnexa, Tender Uterus Back: Positive for: Normal Inspection Extremity: Positive for: Normal ROM Neurologic/Psych: Positive for: Alert, Oriented (x3) <Radha Oscar - Last Filed: 01/13/18 05:55> - ECG O2 Sat by Pulse Oximetry: 100 - Progress ED Course And Treament: labs, IV fluids u/s from 12/04/17 reviewed; shows 3 fibroids, thickened endometrium/endometrial hyperplasia <Radha Oscar - Last Filed: 01/13/18 05:55> - Laboratory Results Result Diagrams: 01/13/18 05:53 <Bhanu Whaley - Last Filed: 01/13/18 06:17> Medical Decision Making Medical Decision Makin:00 Patient will be signed out to Dr. Roman pending Ultrasound and reevaluation. Scribe Attestation: Documented by, Lisa West acting as a scribe for Bhanu Whaley MD. Provider Scribe Attestation: All medical record entries made by the Scribe were at my direction and personally dictated by me. I have reviewed the chart and agree that the record accurately reflects my personal performance of the history, physical exam, medical decision making, and the department course for this patient. I have also personally directed, reviewed, and agree with the discharge instructions and disposition. <Bhanu Whaley - Last Filed: 01/13/18 06:17> Disposition - Disposition Disposition Time: 06:00 Patient Signed Over To: Bhanu Whaley Handoff Comments: pending labs <Radha Oscar - Last Filed: 01/13/18 05:55> <Bhanu Whaley - Last Filed: 01/13/18 06:17> - Clinical Impression Clinical Impression: Vaginal bleeding - Disposition Condition: STABLE Forms: [employer] (Icelandic)
--- NOTE | 2018-01-13 06:04 | ED PDOC ---
- ECG O2 Sat by Pulse Oximetry: 100 (RA) Pulse Ox Interpretation: Normal Medical Decision Making Medical Decision Making: Time: 6:00 Patient endorsed to me by WILLIE Oscar pending Ultrasound and reevaluation. 7:00 Patient will be signed out to Dr. Roman pending ultrasound and reevaluation. Scribe Attestation: Documented by, Lisa West acting as a scribe for Bhanu Whaley MD. Provider Scribe Attestation: All medical record entries made by the Scribe were at my direction and personally dictated by me. I have reviewed the chart and agree that the record accurately reflects my personal performance of the history, physical exam, medical decision making, and the department course for this patient. I have also personally directed, reviewed, and agree with the discharge instructions and disposition. Disposition - Clinical Impression Clinical Impression: Vaginal bleeding - Disposition Condition: STABLE Forms: [email or web address] (Khmer)
[2018-01-13 06:10] LABS: BASO # 0.1 K/uL (0.0-0.2); BASO % 0.9 % (0.0-2.0); EOS # 0.1 K/uL (0.0-0.7); EOS % 1.1 % (0.0-4.0); HEMOGLOBIN 12.2 g/dL (12.0-16.0); LYMPH # 1.8 K/uL (1.0-4.3); LYMPH % 20.7 % (20.0-40.0); MEAN CELL VOLUME 90.5 fl (81.0-99.0); MEAN CORPUSCULAR HEMOGLOBIN 31.3 pg (27.0-31.0); MEAN CORPUSCULAR HGB CONC 34.6 g/dL (33.0-37.0); MEAN PLATELET VOLUME 10.8 fl (7.2-11.7); MONO # 0.5 K/uL (0.0-0.8); MONO % 6.2 % (0.0-10.0); NEUT # 6.3 K/uL (1.8-7.0); NEUT % 71.1 % (50.0-75.0); NRBC % 0.1 % (0.0-0.0); RBC 3.89 Mil/uL (3.80-5.20); RED CELL DISTRIBUTION WIDTH 14.8 % (11.5-14.5); WHITE BLOOD COUNT 8.8 K/uL (4.8-10.8)
[2018-01-13 06:14] LABS: ALB/GLOB RATIO 1.4 (1.0-2.1); ALBUMIN 4.4 g/dL (3.5-5.0); CALCIUM 10.3 mg/dL (8.4-10.2); GFR NON-AFRICAN AMERICAN > 60
[2018-01-13 06:24] LABS: ALT/SGPT 34 U/L (9-52); AST/SGOT 33 U/L (14-36); BLOOD UREA NITROGEN 15 mg/dl (7-17)
[2018-01-13 07:16] VITALS: RESP 18; O2SAT 99
--- NOTE | 2018-01-13 07:20 | ED PDOC ---
- Laboratory Results Result Diagrams: 01/13/18 05:53 01/13/18 05:53 - ECG O2 Sat by Pulse Oximetry: 99 (RA) Pulse Ox Interpretation: Normal Medical Decision Making Medical Decision Making: Time: 709 Patient signed out to me by Dr. Whaley pending US study and reassessment. Time: 1009 US Pelvis/Transvag FINDINGS: The uterus is abnormal in contour an deformed by multiple fibroids. At least 5 large fibroids are present on this exam. No fibroid seen on this exam is greater than that seen previously. Given the prior measurements of some of the fibroids and the current measurements - an overall mild increase in size of fibroids is inferred. Number fibroids and a gross positions are as follows: 1 anterior mid body probably intramural measuring 3.6 x 3.1 x 2.9 cm. Inferior to this is another intramural fibroid measuring 2.3 x 2.5 x 2.1 cm. In the posterior upper body an intramural fibroid measuring 2.4 x 2.0 x 1.7 cm and another further posterior sub serosal fibroid measuring 3.0 x 2.8 x 1.8 cm in size is noted. At the fundus a mostly pedunculated fibroid measuring 7.5 x 8.2 x 2.8 cm in size is noted. No fibroids with endometrial contact is appreciated. The endometrium is thickened at 2.6 cm. The uterus measures 13.9 x 9.3 x 9.0 cm and is anteverted. A large simple appearing right ovarian cyst measuring 5.1 x 4.7 x 3.6 cm in size is noted. This is an interval change. The right over measures 8.5 x 6.2 x 4.5 cm. The left ovary is not visualized on this exam. Previously the left ovary was identified. Previously a prior left ovarian simple cyst measuring 4.6 x 4.9 x 1.9 cm in size was noted. This is not visualized on this exam. No gross free fluid in the cul-de-sac is seen. IMPRESSION: Enlarged lobulated uterus - distorted by multiple uterine fibroids. More uterine fibroids are identified on the current study than was noted previously. Of those seen interval increase in size is per is suggested. Thicken endometrium. Interval large right ovarian simple appearing cyst measuring up to 5.1 cm. Currently the left ovary is not visualized. Previously a left ovarian simple cyst was noted. That prior left ovarian cysts is not identified in the left adnexal on this exam. Time: 1130 Patient informed of US findings. Repeat vital sings are normal and patient is in no acute distress. Patient stable for discharged home and will f/u with her PMD Dr. Lazo Scribe Attestation: Documented by Sigrid Everett, acting as a scribe for Lizandro Roman MD. Provider Scribe Attestation: All medical record entries made by the Scribe were at my direction and personally dictated by me. I have reviewed the chart and agree that the record accurately reflects my personal performance of the history, physical exam, medical decision making, and the department course for this patient. I have also personally directed, reviewed, and agree with the discharge instructions and disposition. 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
--- NOTE | 2018-01-13 09:46 | US ---
Date of service: 01/13/2018 PROCEDURE: HISTORY: heavy vaginal bleeding after provera COMPARISON: 12/04/2017 TECHNIQUE: Transvaginal FINDINGS: The uterus is abnormal in contour an deformed by multiple fibroids. At least 5 large fibroids are present on this exam. No fibroid seen on this exam is greater than that seen previously. Given the prior measurements of some of the fibroids and the current measurements - an overall mild increase in size of fibroids is inferred. Number fibroids and a gross positions are as follows: 1 anterior mid body probably intramural measuring 3.6 x 3.1 x 2.9 cm. Inferior to this is another intramural fibroid measuring 2.3 x 2.5 x 2.1 cm. In the posterior upper body an intramural fibroid measuring 2.4 x 2.0 x 1.7 cm and another further posterior sub serosal fibroid measuring 3.0 x 2.8 x 1.8 cm in size is noted. At the fundus a mostly pedunculated fibroid measuring 7.5 x 8.2 x 2.8 cm in size is noted. No fibroids with endometrial contact is appreciated. The endometrium is thickened at 2.6 cm. The uterus measures 13.9 x 9.3 x 9.0 cm and is anteverted. A large simple appearing right ovarian cyst measuring 5.1 x 4.7 x 3.6 cm in size is noted. This is an interval change. The right over measures 8.5 x 6.2 x 4.5 cm. The left ovary is not visualized on this exam. Previously the left ovary was identified. Previously a prior left ovarian simple cyst measuring 4.6 x 4.9 x 1.9 cm in size was noted. This is not visualized on this exam. No gross free fluid in the cul-de-sac is seen. IMPRESSION: Enlarged lobulated uterus - distorted by multiple uterine fibroids. More uterine fibroids are identified on the current study than was noted previously. Of those seen interval increase in size is per is suggested. Thicken endometrium. Interval large right ovarian simple appearing cyst measuring up to 5.1 cm. Currently the left ovary is not visualized. Previously a left ovarian simple cyst was noted. That prior left ovarian cysts is not identified in the left adnexal on this exam.
[2018-01-13 10:10] LABS: URINE BACTERIA RARE (<OCC); URINE BILIRUBIN NEGATIVE (NEGATIVE); URINE BLOOD LARGE (NEGATIVE); URINE GLUCOSE (UA) NEG (Normal); URINE LEUKOCYTE ESTERASE NEG Leu/uL (Negative); URINE PROTEIN >=500 mg/dL (NEGATIVE); URINE UROBILINOGEN 0.2-1.0 mg/dL (0.2-1.0)
[2018-01-13 10:14] LABS: URINE COLOR RED (YELLOW)
[2018-01-13 10:15] LABS: URINE CLARITY Turbid (Clear)
[2018-01-13 12:34] VITALS: BP 123/72; PULSE 70; TEMP 98.3
== END 2018-01-13 12:36 | disposition home or self-care (01) ==
LOC: H.ER 04:05
DX: N93.9 Abnormal uterine and vaginal bleeding, unspecified (principal); D25.9 Leiomyoma of uterus, unspecified; I10 Essential (primary) hypertension
CPT/HCPCS: 76830; 76856; 80053; 81003; 81025; 85025; 87086; 96360; 99285; J7030